=== PATIENT | female | born 1960 | race Caucasian/White ===

== ENCOUNTER 2022-06-06 16:34 | Emergency (ER) | payer BC, OTHER ==
[2022-06-06 16:44] VITALS: BP 150/81; PULSE 75; RESP 18; TEMP 99; BMI 29.0
[2022-06-06] MEDS ORDERED: ACETAMINOPHEN 500 MG TABLET (FP) PO ONE (17:47)
[2022-06-06] MEDS ORDERED: ONDANSETRON *ODT* 4 MG TABLET SL ONE (17:47)
[2022-06-06] MEDS ORDERED: ACETAMINOPHEN 500 MG TABLET (FP) ONE (17:56)
[2022-06-06] MEDS ORDERED: ONDANSETRON *ODT* 4 MG TABLET ONE (17:56)
== END 2022-06-06 18:30 | disposition home or self-care (01) ==
LOC: FER 16:34
DX: B34.9 Viral infection, unspecified (principal)
CPT/HCPCS: 0241U-QW; 99283-25; Q0162